=== PATIENT | female | born 1960 | race Caucasian/White ===

== ENCOUNTER 2022-10-24 15:30 | Inpatient (IN) | payer MEDICAID ==
[~2022-10-24] VITALS: Ht 152.4 cm; Wt 90.7 kg
[~2022-10-24 15:30] MED LIST: FISH1CAP34 PO; GABA-533 PO; GLIP10TA10 MT; LEVO-65 MT; LOSA25TA26 MT; METF-414 PO; OMEP20TA23 MT; SULF1TAB48 MT
[2022-10-24 19:17] LABS: BASOPHILS % 0.4 % (0.0-2.0); EOSINOPHILS % 1.3 % (0.0-5.0); HEMATOCRIT. 29.6 % (36.0-48.0); HEMOGLOBIN. 9.6 g/dL (12.0-16.0); LYMPHOCYTES % 10.7 % (20.0-50.0); MEAN CORPUSCULAR HEMOGLOBIN 30.3 pg (28.0-32.0); MEAN CORPUSCULAR VOLUME 93.6 fL (81.0-99.0); MEAN PLATELET VOLUME 7.8 fl (7.4-10.4); MONOCYTES % 8.9 % (2.0-8.0); NEUTROPHILS % 78.7 % (40.0-76.0); PLATELET 124 x1000/uL (130-400); RED BLOOD CELL COUNT 3.16 mill/uL (4.2-5.4); RED CELL DISTRIBUTION WIDTH 15.1 % (11.6-14.6)
[2022-10-24 19:25] LABS: INR 1.3; PROTHROMBIN TIME 13.5 sec (9.6-11.0)
[2022-10-24 20:29] LABS: CHLORIDE 109 mEq/L (98-107)
[2022-10-25] MEDS ORDERED: NA PHOS,M-B/NA PHOS,DI-BA ENEMA 118ML PR PRN (00:15)
[2022-10-25] MEDS ORDERED: ACETAMINOPHEN 325MG TABLET PO PRN ×2 (00:15)
[2022-10-25] MEDS ORDERED: MAGNESIUM/ALUMINUM HYDROXIDE/SIMETHICONE 30ML UDC PO PRN (00:15)
[2022-10-25] MEDS ORDERED: CLONIDINE 0.1MG TABLET PO PRN (00:15)
[2022-10-25] MEDS ORDERED: HYDROCODONE/ACETAMINOPHEN 5/325MG TABLET PO PRN (00:15)
[2022-10-25] MEDS ORDERED: DOCUSATE SODIUM 100MG CAPSULE PO PRN (00:15)
[2022-10-25] MEDS ORDERED: DIPHENHYDRAMINE 50MG/ML VIAL IV PRN (00:15)
[2022-10-25] MEDS ORDERED: GUAIFENESIN 200MG/10ML SUGAR FREE UDC PO PRN (00:15)
[2022-10-25] MEDS ORDERED: IPRATROPIUM/ALBUTEROL 0.5-3(2.5)MG/3ML NEB HHN PRN (00:15)
[2022-10-25] MEDS ORDERED: DEXTROSE 50% WATER 50ML SYRINGE IV PRN (00:30)
[2022-10-25] MEDS ORDERED: SODIUM CHLORIDE 0.9% 1,000 ML IV ONE (01:15)
[2022-10-25 01:59] VITALS: BP 130/90
[2022-10-25 02:00] VITALS: BP 130/90
[2022-10-25] MEDS: PANTOPRAZOLE SODIUM 40 MG/VIAL IV SCH ×2 (05:29→09:00)
[2022-10-25] MEDS: BLOOD SUGAR DIAGNOSTIC STRIP TEST SCH ×4 (05:30→19:55)
[2022-10-25] MEDS ORDERED: PANTOPRAZOLE 40MG DR TABLET PO SCH (06:00)
[2022-10-25] MEDS: ONDANSETRON HCL 4MG/2ML INJ IV PRN (06:29)
[2022-10-25] MEDS: INSULIN LISPRO 100 UNITS/ML SUBCUT SCH ×4 (07:50→19:55)
[2022-10-25 12:26] LABS: HEMATOCRIT 26.7 % (36.0-48.0); HEMOGLOBIN 8.8 g/dL (12.0-16.0); MEAN CORPUSCULAR HEMOGLOBIN 30.8 pg (28.0-32.0); MEAN CORPUSCULAR VOLUME 93.6 fL (81.0-99.0); PLATELET 111 x1000/uL (130-400); RED BLOOD CELL COUNT 2.85 mill/uL (4.2-5.4); RED CELL DISTRIBUTION WIDTH 15.4 % (11.6-14.6)
[2022-10-25 13:02] LABS: PHOSPHORUS 2.6 mg/dL (2.5-4.9); T4 FREE 1.62 ng/dL (0.76-1.46)
[2022-10-25] MEDS ORDERED: NALOXONE HCL 0.4MG/ML VIAL IV PRN (17:15)
[2022-10-25 19:20] LABS: VITAMIN B12 SERUM > 2000.0 pg/mL (211-911)
[2022-10-25 21:09] LABS: HEMATOCRIT 27.1 % (36.0-48.0); HEMOGLOBIN 8.6 g/dL (12.0-16.0)
[2022-10-26 00:40] LABS: HEMATOCRIT 25.8 % (36.0-48.0); HEMOGLOBIN 8.2 g/dL (12.0-16.0)
[2022-10-26] MEDS: HYDROCODONE/ACETAMINOPHEN 10/325MG TABLET PO PRN (05:00)
[2022-10-26] MEDS: BLOOD SUGAR DIAGNOSTIC STRIP TEST SCH ×4 (05:39→21:00)
[2022-10-26 07:28] LABS: BASOPHILS % 0.5 % (0.0-2.0); EOSINOPHILS % 2.1 % (0.0-5.0); HEMATOCRIT. 23.3 % (36.0-48.0); HEMOGLOBIN. 7.6 g/dL (12.0-16.0); LYMPHOCYTES % 13.5 % (20.0-50.0); MEAN CORPUSCULAR HEMOGLOBIN 30.6 pg (28.0-32.0); MEAN CORPUSCULAR VOLUME 93.8 fL (81.0-99.0); MEAN PLATELET VOLUME 7.4 fl (7.4-10.4); MONOCYTES % 9.4 % (2.0-8.0); NEUTROPHILS % 74.5 % (40.0-76.0); PLATELET 102 x1000/uL (130-400); RED BLOOD CELL COUNT 2.49 mill/uL (4.2-5.4); RED CELL DISTRIBUTION WIDTH 15.4 % (11.6-14.6)
[2022-10-26] MEDS: INSULIN LISPRO 100 UNITS/ML SUBCUT SCH ×4 (07:50→21:00)
[2022-10-26 09:12] LABS: CHLORIDE 113 mEq/L (98-107); HDL CHOLESTEROL 11 mg/dL (40-59); LDL CHOLESTEROL 50 mg/dL (5-100); PHOSPHORUS 2.4 mg/dL (2.5-4.9); T4 FREE 1.53 ng/dL (0.76-1.46)
[2022-10-26] MEDS: PANTOPRAZOLE SODIUM 40 MG/VIAL IV SCH (09:21)
[2022-10-26 12:00] VITALS: BP_SYST 97; BP_SYST 98; BP_DIAS 32; BP_DIAS 33
[2022-10-26 12:01] VITALS: BP_SYST 97; BP_SYST 98; BP_DIAS 32; BP_DIAS 33
[2022-10-26] MEDS ORDERED: SODIUM CHLORIDE 0.9% 1000ML BAG (SEPSIS BOLUS) IV ONE (13:00)
[2022-10-26] MEDS ORDERED: SODIUM CHLORIDE 0.9% 250 ML IV SCH (13:15)
[2022-10-26 16:00] VITALS: BP 95/33
[2022-10-26 18:15] VITALS: BP_SYST 106; BP_SYST 95; BP_DIAS 24; BP_DIAS 29
[2022-10-26] MEDS ORDERED: MIDODRINE HCL 5MG TABLET PO SCH (18:15)
[2022-10-26 18:40] VITALS: BP 121/45
[2022-10-26 20:00] VITALS: BP 107/52
[2022-10-26 20:34] LABS: HEMATOCRIT 28.4 % (36.0-48.0); HEMOGLOBIN 8.9 g/dL (12.0-16.0)
[2022-10-26] MEDS: FOLIC ACID 1MG TABLET PO SCH (21:00)
[2022-10-27] VITALS: BP 119/60
[2022-10-27] MEDS: HYDROXYZINE 25MG TABLET PO PRN ×2 (00:44→21:03)
[2022-10-27 03:05] LABS: HEMATOCRIT 23.9 % (36.0-48.0); HEMOGLOBIN 7.8 g/dL (12.0-16.0)
[2022-10-27 04:00] VITALS: BP 99/57
[2022-10-27] MEDS: MIDODRINE HCL 5MG TABLET PO SCH ×3 (05:00→21:00)
[2022-10-27 06:21] LABS: BASOPHILS % 0.5 % (0.0-2.0); EOSINOPHILS % 1.8 % (0.0-5.0); HEMATOCRIT. 23.4 % (36.0-48.0); HEMOGLOBIN. 7.5 g/dL (12.0-16.0); LYMPHOCYTES % 17.5 % (20.0-50.0); MEAN CORPUSCULAR HEMOGLOBIN 30.5 pg (28.0-32.0); MEAN CORPUSCULAR VOLUME 94.9 fL (81.0-99.0); MEAN PLATELET VOLUME 7.9 fl (7.4-10.4); MONOCYTES % 8.9 % (2.0-8.0); NEUTROPHILS % 71.3 % (40.0-76.0); PLATELET 97 x1000/uL (130-400); RED BLOOD CELL COUNT 2.46 mill/uL (4.2-5.4); RED CELL DISTRIBUTION WIDTH 15.6 % (11.6-14.6)
[2022-10-27] MEDS: INSULIN LISPRO 100 UNITS/ML SUBCUT SCH ×4 (07:50→21:00)
[2022-10-27] MEDS: BLOOD SUGAR DIAGNOSTIC STRIP TEST SCH ×4 (07:56→21:32)
[2022-10-27 08:00] VITALS: BP 97/34
[2022-10-27] MEDS: FOLIC ACID 1MG TABLET PO SCH (09:55)
[2022-10-27] MEDS: FUROSEMIDE 40MG TABLET PO SCH ×3 (09:55→17:15)
[2022-10-27] MEDS: PANTOPRAZOLE SODIUM 40 MG/VIAL IV SCH (09:55)
[2022-10-27 12:00] VITALS: BP 93/29
[2022-10-27 16:00] VITALS: BP 98/28
[2022-10-27 16:57] LABS: HEMATOCRIT 24.7 % (36.0-48.0); HEMOGLOBIN 8.2 g/dL (12.0-16.0)
[2022-10-27 17:06] LABS: KAPPA/LAMBDA RATIO 1.09 (0.26-1.65); LAMBDA LT CHAINS FREE SERUM 129.8 mg/L (5.7-26.3)
[2022-10-27] MEDS: SORBITOL 70% SOLN 30ML PO SCH ×2 (17:50→20:00)
[2022-10-27 20:00] VITALS: BP 112/80
[2022-10-27] MEDS: ONDANSETRON HCL 4MG/2ML INJ IV PRN (21:03)
[2022-10-27] MEDS: HYDROCODONE/ACETAMINOPHEN 10/325MG TABLET PO PRN (21:05)
[2022-10-27 21:14] LABS: HEMATOCRIT 32.1 % (36.0-48.0); HEMOGLOBIN 10.1 g/dL (12.0-16.0)
[2022-10-27] MEDS ORDERED: MORPHINE SULFATE 2 MG/ML CPJ (NOT FOR IM USE) IV PRN (22:15)
[2022-10-28] VITALS: BP 121/70
[2022-10-28 02:20] LABS: HEMATOCRIT 25.9 % (36.0-48.0); HEMOGLOBIN 8.2 g/dL (12.0-16.0)
[2022-10-28 04:00] VITALS: BP 97/55
[2022-10-28] MEDS: MIDODRINE HCL 5MG TABLET PO SCH ×3 (05:00→21:00)
[2022-10-28] MEDS: FUROSEMIDE 40MG TABLET PO SCH ×2 (07:15→17:15)
[2022-10-28] MEDS: INSULIN LISPRO 100 UNITS/ML SUBCUT SCH ×4 (07:50→21:00)
[2022-10-28 08:08] LABS: A/G RATIO 0.4 (0.7-1.7); ALBUMIN 1.6 g/dL (2.9-4.4); ALPHA-1-GLOBULIN 0.2 g/dL (0.0-0.4); ALPHA-2-GLOBULIN 0.4 g/dL (0.4-1.0); BETA GLOBULIN 0.7 g/dL (0.7-1.3); GAMMA GLOBULINS 2.3 g/dL (0.4-1.8); GLOBULIN TOTAL 3.7 g/dL (2.2-3.9); M-SPIKE Not Observed g/dL (Not Observed); TOTAL PROTEIN SERUM 5.3 g/dL (6.0-8.5)
[2022-10-28] MEDS: BLOOD SUGAR DIAGNOSTIC STRIP TEST SCH ×4 (08:09→21:00)
[2022-10-28] MEDS: FOLIC ACID 1MG TABLET PO SCH (09:00)
[2022-10-28] MEDS: PANTOPRAZOLE SODIUM 40 MG/VIAL IV SCH (09:38)
[2022-10-28] MEDS ORDERED: PROPOFOL 200MG/20ML VIAL IV ONE (09:49)
[2022-10-28] MEDS ORDERED: EPHEDRINE SULFATE 50MG/ML VIAL ONE (09:49)
[2022-10-28] MEDS ORDERED: LIDOCAINE HCL 1% 10 MG/ML 10ML VIAL ONE (09:49)
[2022-10-28] MEDS ORDERED: PHENYLEPHRINE HCL 10 MG/ML 1ML (IV VIAL) IV ONE (09:49)
[2022-10-28] MEDS ORDERED: ETOMIDATE 2MG/ML 10ML VIAL IV ONE (10:40)
[2022-10-28] MEDS ORDERED: MIDAZOLAM HCL 2 MG/2 ML VIAL ONE (10:43)
[2022-10-28 16:10] LABS: BASOPHILS % 0.4 % (0.0-2.0); EOSINOPHILS % 0.3 % (0.0-5.0); HEMATOCRIT. 25.9 % (36.0-48.0); LYMPHOCYTES % 7.8 % (20.0-50.0); MEAN CORPUSCULAR HEMOGLOBIN 30.2 pg (28.0-32.0); MEAN CORPUSCULAR VOLUME 97.5 fL (81.0-99.0); MEAN PLATELET VOLUME 8.2 fl (7.4-10.4); MONOCYTES % 7.5 % (2.0-8.0); PLATELET 100 x1000/uL (130-400); RED BLOOD CELL COUNT 2.65 mill/uL (4.2-5.4); RED CELL DISTRIBUTION WIDTH 16.5 % (11.6-14.6)
[2022-10-28 16:19] LABS: INR 1.3
[2022-10-28 20:00] VITALS: BP 108/36
[2022-10-29] VITALS: BP 106/40
[2022-10-29] MEDS: MIDODRINE HCL 5MG TABLET PO SCH ×3 (05:00→21:17)
[2022-10-29] MEDS: FUROSEMIDE 40MG TABLET PO SCH ×2 (06:55→18:54)
[2022-10-29] MEDS: INSULIN LISPRO 100 UNITS/ML SUBCUT SCH ×4 (07:50→20:36)
[2022-10-29] MEDS: BLOOD SUGAR DIAGNOSTIC STRIP TEST SCH ×4 (08:05→20:36)
[2022-10-29 09:17] LABS: BASOPHILS % 0.4 % (0.0-2.0); EOSINOPHILS % 2.3 % (0.0-5.0); HEMATOCRIT. 24.2 % (36.0-48.0); HEMOGLOBIN. 7.8 g/dL (12.0-16.0); LYMPHOCYTES % 14.3 % (20.0-50.0); MEAN CORPUSCULAR HEMOGLOBIN 30.5 pg (28.0-32.0); MEAN CORPUSCULAR VOLUME 95.3 fL (81.0-99.0); MEAN PLATELET VOLUME 8.2 fl (7.4-10.4); MONOCYTES % 10.4 % (2.0-8.0); NEUTROPHILS % 72.6 % (40.0-76.0); PLATELET 89 x1000/uL (130-400); RED BLOOD CELL COUNT 2.54 mill/uL (4.2-5.4); RED CELL DISTRIBUTION WIDTH 16.2 % (11.6-14.6)
[2022-10-29] MEDS: PANTOPRAZOLE SODIUM 40 MG/VIAL IV SCH (10:40)
[2022-10-29] MEDS: FOLIC ACID 1MG TABLET PO SCH (10:41)
[2022-10-29 12:20] VITALS: BP 93/30
[2022-10-29 12:58] LABS: HEPATITIS B SURFACE ANTIGEN NEGATIVE
[2022-10-29] MEDS: LEVOTHYROXINE SODIUM 50MCG TABLET PO SCH (13:30)
[2022-10-29 16:14] VITALS: BP 95/42
[2022-10-29] MEDS ORDERED: MIDO5TAB4 PO (18:02)
[2022-10-29] MEDS ORDERED: WHEA152P PO (18:02)
[2022-10-29] MEDS ORDERED: LEVO50TA8 PO (18:02)
[2022-10-29] MEDS: MEGESTROL ACETATE 400 MG/10 ML UDC PO SCH (18:54)
[2022-10-29 19:39] LABS: CLARITY URINE CLEAR (CLEAR); COLOR URINE YELLOW (YELLOW); KETONES URINE NEGATIVE (NEGATIVE); LEUKOCYTE ESTERASE URINE TRACE (NEGATIVE); NITRITE URINE NEGATIVE (NEGATIVE); OCCULT BLOOD URINE 1+ (NEGATIVE); PROTEIN URINE NEGATIVE (NEGATIVE); SPECIFIC GRAVITY URINE 1.008 (1.005-1.030); UROBILINOGEN URINE 0.2 E.U./dL (0.2-1.0)
[2022-10-29 20:00] VITALS: BP 95/36
[2022-10-29] MEDS ORDERED: MEGE400O4 PO (22:01)
[2022-10-29] MEDS ORDERED: FURO40TA5 PO (22:01)
[2022-10-30] VITALS: BP 96/34
[2022-10-30 03:51] VITALS: BP 96/34
[2022-10-30 04:00] VITALS: BP 97/35
[2022-10-30] MEDS: FUROSEMIDE 40MG TABLET PO SCH (06:19)
[2022-10-30] MEDS: LEVOTHYROXINE SODIUM 50MCG TABLET PO SCH (06:19)
[2022-10-30] MEDS: MIDODRINE HCL 5MG TABLET PO SCH (06:19)
[2022-10-30] MEDS: BLOOD SUGAR DIAGNOSTIC STRIP TEST SCH (07:42)
[2022-10-30] MEDS: INSULIN LISPRO 100 UNITS/ML SUBCUT SCH (07:50)
[2022-10-30 08:23] LABS: BASOPHILS % 0.6 % (0.0-2.0); EOSINOPHILS % 2.8 % (0.0-5.0); HEMATOCRIT. 25.5 % (36.0-48.0); HEMOGLOBIN. 8.4 g/dL (12.0-16.0); LYMPHOCYTES % 17.7 % (20.0-50.0); MEAN CORPUSCULAR VOLUME 93.8 fL (81.0-99.0); MEAN PLATELET VOLUME 8.3 fl (7.4-10.4); MONOCYTES % 10.6 % (2.0-8.0); NEUTROPHILS % 68.3 % (40.0-76.0); PLATELET 113 x1000/uL (130-400); RED BLOOD CELL COUNT 2.72 mill/uL (4.2-5.4); RED CELL DISTRIBUTION WIDTH 16.4 % (11.6-14.6)
[2022-10-30] MEDS ORDERED: PANTOPRAZOLE 40MG DR TABLET PO SCH (09:30)
[2022-10-30 10:10] LABS: IMMUNOGLOBULIN A 832 mg/dL (87-352); IMMUNOGLOBULIN G 2114 mg/dL (586-1602); IMMUNOGLOBULIN M 154 mg/dL (26-217)
[2022-10-30] MEDS: FOLIC ACID 1MG TABLET PO SCH (10:12)
[2022-10-30] MEDS: MEGESTROL ACETATE 400 MG/10 ML UDC PO SCH (10:12)
[2022-11-02 06:12] LABS: ANA IFA Negative (.)
== END 2022-10-30 10:43 | disposition home or self-care (01) | DRG 252 ==
LOC: ER 15:30 → EDBEDREQ 17:47 → EDBEDREQTM 19:32 → EDBEDREQ 19:32 → 6EST 22:51 → EDBEDREQ 22:55 → EDBEDREQTM 22:55 → EDBEDREQ 22:56 → SUPCPDRO 23:51 → ENRESERV 10-25 00:09
PROVIDERS: ADMIT Internal Medicine; ATTEND Internal Medicine
PROC: 0DJD8ZZ Inspection of Lower Intestinal Tract, Via Natural or Artificial Opening Endoscopic (ICD-10-PCS; principal; 2022-10-28)
DX: K94.01 Colostomy hemorrhage (principal); N17.0 Acute kidney failure with tubular necrosis; E43 Unspecified severe protein-calorie malnutrition; D69.3 Immune thrombocytopenic purpura; D62 Acute posthemorrhagic anemia; D63.1 Anemia in chronic kidney disease; J90 Pleural effusion, not elsewhere classified; K62.4 Stenosis of anus and rectum; E11.22 Type 2 diabetes mellitus with diabetic chronic kidney disease; K76.0 Fatty (change of) liver, not elsewhere classified; Q61.9 Cystic kidney disease, unspecified; K80.20 Calculus of gallbladder without cholecystitis without obstruction; Z20.822 Contact with and (suspected) exposure to COVID-19; E66.01 Morbid (severe) obesity due to excess calories; E03.8 Other specified hypothyroidism; R16.1 Splenomegaly, not elsewhere classified; I95.9 Hypotension, unspecified; I12.9 Hypertensive chronic kidney disease with stage 1 through stage 4 chronic kidney disease, or unspecified chronic kidney disease; N20.2 Calculus of kidney with calculus of ureter; N18.31 Chronic kidney disease, stage 3a; K43.5 Parastomal hernia without obstruction or gangrene; Z68.39 Body mass index [BMI] 39.0-39.9, adult; Z79.899 Other long term (current) drug therapy; Z86.718 Personal history of other venous thrombosis and embolism; Z90.49 Acquired absence of other specified parts of digestive tract; Z95.828 Presence of other vascular implants and grafts; Z79.84 Long term (current) use of oral hypoglycemic drugs
CPT/HCPCS: 36415; 71045; 74176; 76700; 78278; 80048; 80053; 80061; 81003; 82607; 82728; 82746; 82784; 82962; 83036; 83540; 83550; 83735; 83883; 83930; 84100; 84155; 84165; 84439; 84443; 85014; 85018; 85025; 85027; 85044; 86256; 86334; 86705; 86709; 86803; 86850; 86900; 86920; 87340; 87426; 93306; 93970; 97162; 97166; 99285; A9512; C9113; J2250; J2270; J2370; J2405; J2704; J3490

== ENCOUNTER 2023-03-13 18:55 | Inpatient (IN) | payer MEDICAID ==
[~2023-03-13] VITALS: Ht 152.4 cm; Wt 124.3 kg
[~2023-03-13 18:55] MED LIST changes: +FURO40TA5 PO; +LEVO50TA8 PO; -LOSA25TA26 MT; +MEGE400O4 PO; +MIDO5TAB4 PO; -SULF1TAB48 MT; +WHEA152P PO
[2023-03-13] MEDS ORDERED: SODIUM CHLORIDE 0.9% 1,000 ML IV ONE ×2 (19:15→23:45)
[2023-03-13] MEDS ORDERED: PANTOPRAZOLE SODIUM 40 MG/VIAL IV ONE (19:45)
[2023-03-13] MEDS ORDERED: ONDANSETRON HCL 4MG/2ML INJ IV ONE (19:45)
[2023-03-13] MEDS ORDERED: MORPHINE SULFATE 4 MG/ML CPJ (NOT FOR IM USE) IV ONE (19:45)
[2023-03-13 21:58] LABS: HEMATOCRIT. 28.6 % (36.0-48.0); HEMOGLOBIN. 9.3 g/dL (12.0-16.0); MEAN CORPUSCULAR HEMOGLOBIN 31.7 pg (28.0-32.0); MEAN CORPUSCULAR VOLUME 97.5 fL (81.0-99.0); MEAN PLATELET VOLUME 8.3 fl (7.4-10.4); PLATELET 107 x1000/uL (130-400); RED BLOOD CELL COUNT 2.93 mill/uL (4.2-5.4); RED CELL DISTRIBUTION WIDTH 18.6 % (11.6-14.6)
[2023-03-13 22:09] LABS: CHLORIDE 121 mEq/L (98-107)
[2023-03-13 22:20] LABS: PLATELET ESTIMATE DECREASED
[2023-03-13] MEDS ORDERED: KCL 20MEQ/100ML PREMIX 100 ML IV ONE (22:30)
[2023-03-14 00:10] LABS: HEMATOCRIT 27.1 % (36.0-48.0); HEMOGLOBIN 8.8 g/dL (12.0-16.0); MEAN CORPUSCULAR HEMOGLOBIN 32.1 pg (28.0-32.0); MEAN CORPUSCULAR VOLUME 98.6 fL (81.0-99.0); PLATELET 100 x1000/uL (130-400); RED BLOOD CELL COUNT 2.75 mill/uL (4.2-5.4)
[2023-03-14] MEDS ORDERED: FENTANYL CITRATE/PF 50MCG/ML 2ML VIAL IV ONE (01:15)
[2023-03-14 02:35] LABS: INR 1.5; PROTHROMBIN TIME 15.6 sec (9.6-11.0)
[2023-03-14 05:59] VITALS: BP 131/61
[2023-03-14 06:00] VITALS: BP 133/50
[2023-03-14] MEDS ORDERED: ACETAMINOPHEN 325MG TABLET PO PRN ×2 (06:00→09:15)
[2023-03-14] MEDS ORDERED: IOHEXOL-350 100 ML BOTTLE ONE (06:08)
[2023-03-14] MEDS: SODIUM CHLORIDE 0.45% 1,000 ML IV SCH ×2 (06:26→17:40)
[2023-03-14] MEDS: MORPHINE SULFATE 2 MG/ML CPJ (NOT FOR IM USE) IV PRN ×2 (06:45→14:17)
[2023-03-14 06:48] LABS: BASOPHILS % 0.1 % (0.0-2.0); EOSINOPHILS % 0.1 % (0.0-5.0); HEMATOCRIT. 25.6 % (36.0-48.0); HEMOGLOBIN. 8.4 g/dL (12.0-16.0); LYMPHOCYTES % 7.9 % (20.0-50.0); MEAN CORPUSCULAR HEMOGLOBIN 31.9 pg (28.0-32.0); MEAN CORPUSCULAR VOLUME 96.9 fL (81.0-99.0); MONOCYTES % 7.9 % (2.0-8.0); PLATELET 100 x1000/uL (130-400); RED BLOOD CELL COUNT 2.64 mill/uL (4.2-5.4); RED CELL DISTRIBUTION WIDTH 18.9 % (11.6-14.6)
[2023-03-14 08:00] VITALS: BP 104/65
[2023-03-14] MEDS ORDERED: IPRATROPIUM/ALBUTEROL 0.5-3(2.5)MG/3ML NEB HHN PRN (09:15)
[2023-03-14] MEDS ORDERED: DOCUSATE SODIUM 100MG CAPSULE PO PRN (09:15)
[2023-03-14] MEDS ORDERED: CLONIDINE 0.1MG TABLET PO PRN (09:15)
[2023-03-14] MEDS ORDERED: LORAZEPAM 0.5MG TABLET PO PRN (09:15)
[2023-03-14] MEDS ORDERED: NALOXONE HCL 0.4MG/ML VIAL IV PRN (10:00)
[2023-03-14 12:00] VITALS: BP 133/57
[2023-03-14] MEDS: PANTOPRAZOLE SODIUM 40 MG/VIAL IV SCH ×2 (12:54→21:24)
[2023-03-14] MEDS ORDERED: DEXTROSE 50% WATER 50ML SYRINGE IV PRN (13:00)
[2023-03-14 13:44] LABS: BG BASE EXCESS -1.9 mmol/L (-2.0-2.0); BG CARBOXYHEMOGLOBIN 0.5 % (0.5-1.5); BG HCO3 ACT 21.8 mmol/L (22.0-26.0); BG METHEMOGLOBIN 0.2 % (0.0-1.5); BG OXYHEMOGLOBIN 94.3 % (94.0-97.0); BG PCO2 32.7 mmHg (35.0-45.0); BG PH 7.441 (7.350-7.450); BG PO2 78.2 mmHg (75.0-100.0); BG SAMPLE SITE RIGHT RADIAL; BG TOTAL HEMOGLOBIN 8.9 g/dL (12.0-18.0); BG VENT MODE ROOM AIR
[2023-03-14 15:34] LABS: INR 1.5; PROTHROMBIN TIME 15.9 sec (9.6-11.0)
[2023-03-14 15:42] LABS: CREATINE KINASE 284 IU/L (26-192); TOTAL IRON BINDING CAPACITY 99 ug/dL (250-450)
[2023-03-14 16:00] VITALS: BP 106/51
[2023-03-14 16:13] LABS: VITAMIN B12 SERUM 1934 pg/mL (211-911)
[2023-03-14 16:37] LABS: FERRITIN 1340 ng/mL (10-291)
[2023-03-14] MEDS: INSULIN LISPRO 100 UNITS/ML SUBCUT SCH ×2 (17:20→21:00)
[2023-03-14] MEDS: ACETAMINOPHEN 325MG TABLET PO PRN (17:39)
[2023-03-14] MEDS: BLOOD SUGAR DIAGNOSTIC STRIP TEST SCH ×2 (17:39→21:21)
[2023-03-14 18:04] LABS: CLARITY URINE CLOUDY (CLEAR); COLOR URINE DARK YELLOW (YELLOW); KETONES URINE TRACE (NEGATIVE); LEUKOCYTE ESTERASE URINE 2+ (NEGATIVE); NITRITE URINE NEGATIVE (NEGATIVE); OCCULT BLOOD URINE 3+ (NEGATIVE); PH URINE 5.5 (4.5-8.0); PROTEIN URINE 1+ (NEGATIVE); SPECIFIC GRAVITY URINE 1.038 (1.005-1.030)
[2023-03-14 18:06] LABS: HEMATOCRIT 26.1 % (36.0-48.0); HEMOGLOBIN 8.3 g/dL (12.0-16.0)
[2023-03-14] MEDS: PHYTONADIONE 10MG/ML AMP SUBCUT SCH (19:22)
[2023-03-14 20:00] VITALS: BP 135/92
[2023-03-15] VITALS: BP 115/40
[2023-03-15 00:50] LABS: HEMATOCRIT 25.8 % (36.0-48.0); HEMOGLOBIN 8.5 g/dL (12.0-16.0)
[2023-03-15] MEDS: SODIUM CHLORIDE 0.45% 1,000 ML IV SCH ×3 (02:19→21:21)
[2023-03-15 04:00] VITALS: BP 121/47
[2023-03-15 05:35] LABS: BASOPHILS % 0.2 % (0.0-2.0); EOSINOPHILS % 1.2 % (0.0-5.0); HEMATOCRIT. 23.4 % (36.0-48.0); HEMOGLOBIN. 7.5 g/dL (12.0-16.0); MEAN CORPUSCULAR HEMOGLOBIN 32.2 pg (28.0-32.0); MEAN CORPUSCULAR VOLUME 100.6 fL (81.0-99.0); MEAN PLATELET VOLUME 7.8 fl (7.4-10.4); MONOCYTES % 12.6 % (2.0-8.0); PLATELET 96 x1000/uL (130-400); RED BLOOD CELL COUNT 2.32 mill/uL (4.2-5.4); RED CELL DISTRIBUTION WIDTH 19.3 % (11.6-14.6)
[2023-03-15 05:39] LABS: CHLORIDE 110 mEq/L (98-107)
[2023-03-15] MEDS: BLOOD SUGAR DIAGNOSTIC STRIP TEST SCH ×4 (07:00→21:00)
[2023-03-15] MEDS: INSULIN LISPRO 100 UNITS/ML SUBCUT SCH ×4 (07:20→21:00)
[2023-03-15 08:00] VITALS: BP 126/43
[2023-03-15] MEDS: PHYTONADIONE 10MG/ML AMP SUBCUT SCH (09:43)
[2023-03-15] MEDS: PANTOPRAZOLE SODIUM 40 MG/VIAL IV SCH ×2 (09:43→21:20)
[2023-03-15] MEDS: FOLIC ACID 1MG TABLET PO SCH (09:43)
[2023-03-15] MEDS ORDERED: FOLIC ACID 1 MG in SODIUM CHLORIDE 0.9% 500 ML IV ONE (10:00)
[2023-03-15 12:00] VITALS: BP 122/42
[2023-03-15] MEDS: CEFTRIAXONE 1,000 MG in DEXTROSE 5% WATER 50 ML IV SCH (12:04)
[2023-03-15] MEDS: MORPHINE SULFATE 2 MG/ML CPJ (NOT FOR IM USE) IV PRN ×2 (12:17→21:21)
[2023-03-15 13:08] LABS: HEMATOCRIT 22.7 % (36.0-48.0); HEMOGLOBIN 7.5 g/dL (12.0-16.0)
[2023-03-15 13:30] LABS: CREATINE KINASE 263 IU/L (26-192)
[2023-03-15 16:00] VITALS: BP 123/43
[2023-03-15 20:00] VITALS: BP 116/44
[2023-03-15 21:12] LABS: HEMATOCRIT 25.3 % (36.0-48.0); HEMOGLOBIN 7.8 g/dL (12.0-16.0)
[2023-03-16] VITALS (8 sets, daily range): BP systolic 106–132; BP diastolic 46–82
[2023-03-16 01:25] LABS: HEMATOCRIT 23.8 % (36.0-48.0); HEMOGLOBIN 7.9 g/dL (12.0-16.0)
[2023-03-16] MEDS: MORPHINE SULFATE 2 MG/ML CPJ (NOT FOR IM USE) IV PRN (05:04)
[2023-03-16] MEDS: BLOOD SUGAR DIAGNOSTIC STRIP TEST SCH ×4 (06:17→21:19)
[2023-03-16] MEDS: INSULIN LISPRO 100 UNITS/ML SUBCUT SCH ×4 (06:17→21:30)
[2023-03-16 06:55] LABS: BASOPHILS % 0.4 % (0.0-2.0); EOSINOPHILS % 1.2 % (0.0-5.0); HEMATOCRIT. 22.4 % (36.0-48.0); HEMOGLOBIN. 7.5 g/dL (12.0-16.0); LYMPHOCYTES % 15.6 % (20.0-50.0); MEAN CORPUSCULAR HEMOGLOBIN 32.4 pg (28.0-32.0); MEAN CORPUSCULAR VOLUME 96.2 fL (81.0-99.0); MEAN PLATELET VOLUME 7.8 fl (7.4-10.4); MONOCYTES % 9.8 % (2.0-8.0); PLATELET 103 x1000/uL (130-400); RED BLOOD CELL COUNT 2.33 mill/uL (4.2-5.4); RED CELL DISTRIBUTION WIDTH 18.1 % (11.6-14.6)
[2023-03-16] MEDS ORDERED: LIDOCAINE HCL/EPINEPHRINE 1%-EPI 1:100,000 30 ML VIAL INFIL ONE (06:55)
[2023-03-16] MEDS ORDERED: POLYMYXIN B SULFATE 500000 UNITS/VIAL ONE (06:55)
[2023-03-16] MEDS ORDERED: BUPIVACAINE HCL/PF 0.5% (5MG/ML) 10ML ONE (06:56)
[2023-03-16] MEDS ORDERED: VANCOMYCIN HCL 1 GM/VIAL ONE ×2 (06:56)
[2023-03-16] MEDS ORDERED: CEFAZOLIN SODIUM 1000MG/VIAL ONE (07:25)
[2023-03-16] MEDS ORDERED: PROPOFOL 200MG/20ML VIAL IV ONE (07:27)
[2023-03-16] MEDS ORDERED: MIDAZOLAM HCL 2 MG/2 ML VIAL ONE (07:31)
[2023-03-16] MEDS ORDERED: FENTANYL CITRATE/PF 50MCG/ML 2ML VIAL ONE (07:53)
[2023-03-16] MEDS: SODIUM CHLORIDE 0.45% 1,000 ML IV SCH (08:00)
[2023-03-16 08:11] LABS: CHLORIDE 109 mEq/L (98-107)
[2023-03-16] MEDS ORDERED: HYDROMORPHONE HCL/PF 2MG/ML CPJ IV PRN (08:15)
[2023-03-16] MEDS ORDERED: FENTANYL CITRATE/PF 50MCG/ML 2ML VIAL IV PRN (08:15)
[2023-03-16] MEDS ORDERED: ALBUMIN HUMAN 12.5GM/50ML (25%) IV ONE (08:17)
[2023-03-16 08:24] LABS: PHOSPHORUS 2.9 mg/dL (2.5-4.9)
[2023-03-16] MEDS: PANTOPRAZOLE SODIUM 40 MG/VIAL IV SCH ×2 (08:25→21:16)
[2023-03-16] MEDS: FOLIC ACID 1MG TABLET PO SCH (08:25)
[2023-03-16] MEDS: PHYTONADIONE 10MG/ML AMP SUBCUT SCH (09:00)
[2023-03-16 10:12] LABS: BASOPHILS % 0.1 % (0.0-2.0); EOSINOPHILS % 0.6 % (0.0-5.0); HEMATOCRIT. 30.2 % (36.0-48.0); HEMOGLOBIN. 10.1 g/dL (12.0-16.0); MEAN CORPUSCULAR HEMOGLOBIN 31.9 pg (28.0-32.0); MEAN CORPUSCULAR VOLUME 95.5 fL (81.0-99.0); MONOCYTES % 3.6 % (2.0-8.0); NEUTROPHILS % 86.7 % (40.0-76.0); PLATELET 75 x1000/uL (130-400); RED BLOOD CELL COUNT 3.16 mill/uL (4.2-5.4); RED CELL DISTRIBUTION WIDTH 18.6 % (11.6-14.6)
[2023-03-16] MEDS: CEFTRIAXONE 1,000 MG in DEXTROSE 5% WATER 50 ML IV SCH (13:10)
[2023-03-16 13:12] LABS: HEMATOCRIT 19.9 % (36.0-48.0); HEMOGLOBIN 6.7 g/dL (12.0-16.0)
[2023-03-16] MEDS: HYDROCODONE/ACETAMINOPHEN 5/325MG TABLET PO PRN (18:21)
[2023-03-16] MEDS: CEFAZOLIN 1000MG PREMIX 100 ML IV SCH (21:17)
[2023-03-16 21:18] LABS: HEMATOCRIT 22.9 % (36.0-48.0); HEMOGLOBIN 7.7 g/dL (12.0-16.0)
[2023-03-17] VITALS: BP 126/45
[2023-03-17 02:11] LABS: HEMATOCRIT 23.2 % (36.0-48.0); HEMOGLOBIN 7.8 g/dL (12.0-16.0)
[2023-03-17 04:00] VITALS: BP 97/48
[2023-03-17] MEDS: BLOOD SUGAR DIAGNOSTIC STRIP TEST SCH ×4 (06:15→21:02)
[2023-03-17 06:35] LABS: HEMOGLOBIN. 7.5 g/dL (12.0-16.0); LYMPHOCYTES % 9.5 % (20.0-50.0); MEAN CORPUSCULAR HEMOGLOBIN 31.5 pg (28.0-32.0); MEAN CORPUSCULAR VOLUME 100.6 fL (81.0-99.0); MEAN PLATELET VOLUME 7.7 fl (7.4-10.4); MONOCYTES % 7.7 % (2.0-8.0); NEUTROPHILS % 82.8 % (40.0-76.0); PLATELET 90 x1000/uL (130-400); RED BLOOD CELL COUNT 2.39 mill/uL (4.2-5.4); RED CELL DISTRIBUTION WIDTH 20.6 % (11.6-14.6)
[2023-03-17] MEDS: INSULIN LISPRO 100 UNITS/ML SUBCUT SCH ×5 (07:20→21:00)
[2023-03-17 08:01] VITALS: BP 108/39
[2023-03-17 08:10] LABS: ANTI-NUCLEAR ANTIBODIES DIRECT Positive (Negative)
[2023-03-17] MEDS: FOLIC ACID 1MG TABLET PO SCH (08:31)
[2023-03-17] MEDS: FUROSEMIDE 40MG TABLET PO SCH (08:31)
[2023-03-17] MEDS: PANTOPRAZOLE SODIUM 40 MG/VIAL IV SCH ×2 (08:32→21:04)
[2023-03-17] MEDS: CEFAZOLIN 1000MG PREMIX 100 ML IV SCH ×2 (08:32→21:03)
[2023-03-17] MEDS: HYDROCODONE/ACETAMINOPHEN 5/325MG TABLET PO PRN ×2 (08:36→23:12)
[2023-03-17 12:12] VITALS: BP 100/47
[2023-03-17] MEDS: CEFTRIAXONE 1,000 MG in DEXTROSE 5% WATER 50 ML IV SCH (12:37)
[2023-03-17 16:00] VITALS: BP 121/56
[2023-03-17 17:00] LABS: HEMATOCRIT 24.3 % (36.0-48.0); HEMOGLOBIN 8.1 g/dL (12.0-16.0)
[2023-03-17 20:00] VITALS: BP 120/54
[2023-03-18] VITALS: BP 99/48
[2023-03-18 04:00] VITALS: BP 94/41
[2023-03-18] MEDS: BLOOD SUGAR DIAGNOSTIC STRIP TEST SCH ×4 (06:04→20:53)
[2023-03-18 06:27] LABS: BASOPHILS % 0.1 % (0.0-2.0); EOSINOPHILS % 1.3 % (0.0-5.0); HEMATOCRIT. 21.6 % (36.0-48.0); HEMOGLOBIN. 7.3 g/dL (12.0-16.0); LYMPHOCYTES % 16.1 % (20.0-50.0); MEAN CORPUSCULAR HEMOGLOBIN 31.9 pg (28.0-32.0); MEAN CORPUSCULAR VOLUME 94.1 fL (81.0-99.0); MEAN PLATELET VOLUME 7.4 fl (7.4-10.4); MONOCYTES % 10.1 % (2.0-8.0); NEUTROPHILS % 72.4 % (40.0-76.0); PLATELET 85 x1000/uL (130-400); RED BLOOD CELL COUNT 2.29 mill/uL (4.2-5.4); RED CELL DISTRIBUTION WIDTH 19.4 % (11.6-14.6)
[2023-03-18] MEDS: INSULIN LISPRO 100 UNITS/ML SUBCUT SCH ×4 (07:20→20:54)
[2023-03-18 08:00] VITALS: BP 94/49
[2023-03-18] MEDS ORDERED: POTASSIUM CHLORIDE 20MEQ TABLET SR PO NR (08:45)
[2023-03-18] MEDS: FOLIC ACID 1MG TABLET PO SCH (09:42)
[2023-03-18] MEDS: FUROSEMIDE 40MG TABLET PO SCH (09:42)
[2023-03-18] MEDS: PANTOPRAZOLE SODIUM 40 MG/VIAL IV SCH ×2 (09:43→20:42)
[2023-03-18] MEDS: HYDROCODONE/ACETAMINOPHEN 5/325MG TABLET PO PRN ×2 (09:43→16:58)
[2023-03-18] MEDS ORDERED: DOCUSATE SODIUM 100MG CAPSULE PO SCH (09:45)
[2023-03-18] MEDS: CEFAZOLIN 1000MG PREMIX 100 ML IV SCH ×2 (10:44→20:42)
[2023-03-18] MEDS: LACTULOSE 20G/30ML UDC PO SCH (10:44)
[2023-03-18] MEDS: DOCUSATE SODIUM 250MG CAPSULE PO SCH (11:40)
[2023-03-18] MEDS: CEFTRIAXONE 1,000 MG in DEXTROSE 5% WATER 50 ML IV SCH (11:40)
[2023-03-18] MEDS: ACETAMINOPHEN 325MG TABLET PO PRN (11:58)
[2023-03-18 12:00] VITALS: BP 122/58
[2023-03-18 16:00] VITALS: BP 120/58
[2023-03-18 20:00] VITALS: BP 120/52
[2023-03-18 21:42] LABS: HEMATOCRIT 26.3 % (36.0-48.0); HEMOGLOBIN 8.1 g/dL (12.0-16.0)
[2023-03-19] VITALS: BP 108/54
[2023-03-19] MEDS: HYDROCODONE/ACETAMINOPHEN 5/325MG TABLET PO PRN ×4 (03:29→21:00)
[2023-03-19 04:00] VITALS: BP 107/50
[2023-03-19] MEDS: BLOOD SUGAR DIAGNOSTIC STRIP TEST SCH ×4 (06:38→21:00)
[2023-03-19] MEDS: INSULIN LISPRO 100 UNITS/ML SUBCUT SCH ×4 (07:20→21:00)
[2023-03-19 08:00] VITALS: BP 117/48
[2023-03-19 08:03] LABS: BASOPHILS % 0.4 % (0.0-2.0); EOSINOPHILS % 2.5 % (0.0-5.0); HEMATOCRIT. 23.7 % (36.0-48.0); LYMPHOCYTES % 16.6 % (20.0-50.0); MEAN CORPUSCULAR HEMOGLOBIN 32.4 pg (28.0-32.0); MEAN CORPUSCULAR VOLUME 96.5 fL (81.0-99.0); MONOCYTES % 9.7 % (2.0-8.0); NEUTROPHILS % 70.8 % (40.0-76.0); PLATELET 78 x1000/uL (130-400); RED BLOOD CELL COUNT 2.46 mill/uL (4.2-5.4); RED CELL DISTRIBUTION WIDTH 19.5 % (11.6-14.6)
[2023-03-19 08:45] LABS: PHOSPHORUS 2.6 mg/dL (2.5-4.9)
[2023-03-19] MEDS: LACTULOSE 20G/30ML UDC PO SCH (09:00)
[2023-03-19] MEDS: DOCUSATE SODIUM 250MG CAPSULE PO SCH (09:01)
[2023-03-19] MEDS: FOLIC ACID 1MG TABLET PO SCH (09:01)
[2023-03-19] MEDS: FUROSEMIDE 40MG TABLET PO SCH (09:02)
[2023-03-19] MEDS: PANTOPRAZOLE SODIUM 40 MG/VIAL IV SCH ×2 (09:06→21:00)
[2023-03-19] MEDS ORDERED: POTASSIUM CHLORIDE 20MEQ TABLET SR PO NR (09:45)
[2023-03-19] MEDS: CEFTRIAXONE 1,000 MG in DEXTROSE 5% WATER 50 ML IV SCH (11:32)
[2023-03-19 12:00] VITALS: BP 122/55
[2023-03-19 16:01] VITALS: BP 105/54
[2023-03-19 20:35] VITALS: BP 116/48
[2023-03-20] VITALS: BP 115/44
[2023-03-20 04:00] VITALS: BP 109/49
[2023-03-20] MEDS: BLOOD SUGAR DIAGNOSTIC STRIP TEST SCH ×4 (06:28→20:36)
[2023-03-20] MEDS: INSULIN LISPRO 100 UNITS/ML SUBCUT SCH ×4 (06:28→20:36)
[2023-03-20] MEDS: HYDROCODONE/ACETAMINOPHEN 5/325MG TABLET PO PRN ×3 (06:48→20:39)
[2023-03-20 08:00] VITALS: BP 124/47
[2023-03-20] MEDS: LACTULOSE 20G/30ML UDC PO SCH (09:00)
[2023-03-20] MEDS: FUROSEMIDE 40MG TABLET PO SCH (09:18)
[2023-03-20] MEDS: PANTOPRAZOLE SODIUM 40 MG/VIAL IV SCH ×2 (09:18→20:39)
[2023-03-20] MEDS: DOCUSATE SODIUM 250MG CAPSULE PO SCH (09:18)
[2023-03-20] MEDS: FOLIC ACID 1MG TABLET PO SCH (09:18)
[2023-03-20] MEDS ORDERED: NALOXONE HCL 0.4MG/ML VIAL IV PRN (09:45)
[2023-03-20 11:49] LABS: BASOPHILS % 0.5 % (0.0-2.0); EOSINOPHILS % 2.7 % (0.0-5.0); HEMATOCRIT. 22.8 % (36.0-48.0); HEMOGLOBIN. 7.8 g/dL (12.0-16.0); LYMPHOCYTES % 17.8 % (20.0-50.0); MEAN CORPUSCULAR HEMOGLOBIN 33.3 pg (28.0-32.0); MEAN CORPUSCULAR VOLUME 96.9 fL (81.0-99.0); MEAN PLATELET VOLUME 8.1 fl (7.4-10.4); MONOCYTES % 9.3 % (2.0-8.0); NEUTROPHILS % 69.7 % (40.0-76.0); PLATELET 118 x1000/uL (130-400); RED BLOOD CELL COUNT 2.35 mill/uL (4.2-5.4); RED CELL DISTRIBUTION WIDTH 19.8 % (11.6-14.6)
[2023-03-20 12:00] VITALS: BP 109/40
[2023-03-20] MEDS: CEFTRIAXONE 1,000 MG in DEXTROSE 5% WATER 50 ML IV SCH (12:37)
[2023-03-20] MEDS ORDERED: POTASSIUM CHLORIDE 20MEQ TABLET SR PO NR (12:45)
[2023-03-20 16:00] VITALS: BP 114/46
[2023-03-20 20:00] VITALS: BP 110/39
[2023-03-21] VITALS (7 sets, daily range): BP systolic 109–133; BP diastolic 43–76
[2023-03-21] MEDS: HYDROCODONE/ACETAMINOPHEN 5/325MG TABLET PO PRN ×3 (05:39→21:51)
[2023-03-21 06:28] LABS: BASOPHILS % 0.6 % (0.0-2.0); EOSINOPHILS % 2.4 % (0.0-5.0); HEMATOCRIT. 24.3 % (36.0-48.0); HEMOGLOBIN. 8.2 g/dL (12.0-16.0); LYMPHOCYTES % 15.6 % (20.0-50.0); MEAN CORPUSCULAR VOLUME 97.9 fL (81.0-99.0); MEAN PLATELET VOLUME 7.7 fl (7.4-10.4); MONOCYTES % 9.7 % (2.0-8.0); NEUTROPHILS % 71.7 % (40.0-76.0); PLATELET 75 x1000/uL (130-400); RED BLOOD CELL COUNT 2.48 mill/uL (4.2-5.4); RED CELL DISTRIBUTION WIDTH 20.5 % (11.6-14.6)
[2023-03-21] MEDS: BLOOD SUGAR DIAGNOSTIC STRIP TEST SCH ×4 (06:50→20:47)
[2023-03-21] MEDS: INSULIN LISPRO 100 UNITS/ML SUBCUT SCH ×4 (06:55→20:56)
[2023-03-21] MEDS: DOCUSATE SODIUM 250MG CAPSULE PO SCH ×2 (08:40→17:45)
[2023-03-21] MEDS: PANTOPRAZOLE SODIUM 40 MG/VIAL IV SCH ×2 (08:40→20:47)
[2023-03-21] MEDS: FUROSEMIDE 40MG TABLET PO SCH (08:40)
[2023-03-21] MEDS: LACTULOSE 20G/30ML UDC PO SCH (08:40)
[2023-03-21] MEDS: FOLIC ACID 1MG TABLET PO SCH (09:44)
[2023-03-22] VITALS (7 sets, daily range): BP systolic 108–122; BP diastolic 35–57
[2023-03-22] MEDS: HYDROCODONE/ACETAMINOPHEN 5/325MG TABLET PO PRN ×4 (02:44→22:51)
[2023-03-22] MEDS: INSULIN LISPRO 100 UNITS/ML SUBCUT SCH ×4 (07:45→21:00)
[2023-03-22] MEDS: BLOOD SUGAR DIAGNOSTIC STRIP TEST SCH ×4 (07:45→21:00)
[2023-03-22] MEDS: DOCUSATE SODIUM 250MG CAPSULE PO SCH ×2 (08:37→17:07)
[2023-03-22] MEDS: LACTULOSE 20G/30ML UDC PO SCH (08:37)
[2023-03-22] MEDS: FOLIC ACID 1MG TABLET PO SCH (08:37)
[2023-03-22] MEDS: FUROSEMIDE 40MG TABLET PO SCH (08:40)
[2023-03-22] MEDS: PANTOPRAZOLE SODIUM 40 MG/VIAL IV SCH ×2 (10:24→21:12)
[2023-03-23] VITALS: BP 111/32
[2023-03-23 04:00] VITALS: BP 114/39
[2023-03-23] MEDS: BLOOD SUGAR DIAGNOSTIC STRIP TEST SCH ×4 (05:11→21:00)
[2023-03-23] MEDS: INSULIN LISPRO 100 UNITS/ML SUBCUT SCH ×4 (05:11→21:00)
[2023-03-23] MEDS: HYDROCODONE/ACETAMINOPHEN 5/325MG TABLET PO PRN ×3 (05:16→18:49)
[2023-03-23 08:00] VITALS: BP 103/31
[2023-03-23] MEDS: LACTULOSE 20G/30ML UDC PO SCH (09:00)
[2023-03-23] MEDS: FOLIC ACID 1MG TABLET PO SCH (09:50)
[2023-03-23] MEDS: FUROSEMIDE 40MG TABLET PO SCH (09:50)
[2023-03-23] MEDS: DOCUSATE SODIUM 250MG CAPSULE PO SCH ×2 (09:50→17:00)
[2023-03-23] MEDS: PANTOPRAZOLE SODIUM 40 MG/VIAL IV SCH ×2 (09:50→21:10)
[2023-03-23 12:00] VITALS: BP 117/34
[2023-03-23 16:00] VITALS: BP 102/44
[2023-03-23] MEDS: METHYLPREDNISOLONE SOD SUCC 40 MG/ML VIAL IV SCH (18:00)
[2023-03-23 20:00] VITALS: BP 112/83
[2023-03-24] VITALS: BP 106/25
[2023-03-24 04:00] VITALS: BP 117/26
[2023-03-24] MEDS: METHYLPREDNISOLONE SOD SUCC 40 MG/ML VIAL IV SCH ×2 (06:00→17:38)
[2023-03-24] MEDS: BLOOD SUGAR DIAGNOSTIC STRIP TEST SCH ×4 (07:20→20:38)
[2023-03-24] MEDS: INSULIN LISPRO 100 UNITS/ML SUBCUT SCH ×4 (07:50→20:38)
[2023-03-24 08:00] VITALS: BP 101/33
[2023-03-24 08:49] LABS: FOLIC ACID (FOLATE) SERUM 17.7 ng/mL (>5.38)
[2023-03-24] MEDS: FOLIC ACID 1MG TABLET PO SCH (09:15)
[2023-03-24] MEDS: LACTULOSE 20G/30ML UDC PO SCH (09:15)
[2023-03-24] MEDS: FUROSEMIDE 40MG TABLET PO SCH (09:15)
[2023-03-24] MEDS: DOCUSATE SODIUM 250MG CAPSULE PO SCH ×2 (09:15→17:00)
[2023-03-24] MEDS: PANTOPRAZOLE SODIUM 40 MG/VIAL IV SCH ×2 (09:45→20:39)
[2023-03-24] MEDS: HYDROCODONE/ACETAMINOPHEN 5/325MG TABLET PO PRN ×2 (09:53→20:26)
[2023-03-24 11:25] LABS: BASOPHILS % 0.5 % (0.0-2.0); EOSINOPHILS % 1.6 % (0.0-5.0); HEMATOCRIT. 24.1 % (36.0-48.0); HEMOGLOBIN. 7.8 g/dL (12.0-16.0); MEAN CORPUSCULAR VOLUME 101.6 fL (81.0-99.0); MEAN PLATELET VOLUME 7.8 fl (7.4-10.4); MONOCYTES % 8.3 % (2.0-8.0); NEUTROPHILS % 72.6 % (40.0-76.0); PLATELET 80 x1000/uL (130-400); RED BLOOD CELL COUNT 2.38 mill/uL (4.2-5.4); RED CELL DISTRIBUTION WIDTH 22.9 % (11.6-14.6)
[2023-03-24 12:00] VITALS: BP 117/38
[2023-03-24] MEDS: MIDODRINE HCL 5MG TABLET PO SCH (13:41)
[2023-03-24 16:00] VITALS: BP 120/48
[2023-03-24 20:00] VITALS: BP 112/42
[2023-03-25] VITALS: BP 110/41
[2023-03-25] MEDS: METHYLPREDNISOLONE SOD SUCC 40 MG/ML VIAL IV SCH ×4 (02:45→23:04)
[2023-03-25] MEDS: MIDODRINE HCL 5MG TABLET PO SCH ×4 (02:46→22:00)
[2023-03-25] MEDS: HYDROCODONE/ACETAMINOPHEN 5/325MG TABLET PO PRN ×2 (02:49→09:05)
[2023-03-25 06:03] LABS: BASOPHILS % 0.2 % (0.0-2.0); EOSINOPHILS % 0.1 % (0.0-5.0); HEMATOCRIT. 26.7 % (36.0-48.0); LYMPHOCYTES % 10.2 % (20.0-50.0); MEAN CORPUSCULAR HEMOGLOBIN 33.7 pg (28.0-32.0); MEAN CORPUSCULAR VOLUME 99.8 fL (81.0-99.0); MEAN PLATELET VOLUME 7.7 fl (7.4-10.4); MONOCYTES % 4.8 % (2.0-8.0); NEUTROPHILS % 84.7 % (40.0-76.0); PLATELET 100 x1000/uL (130-400); RED BLOOD CELL COUNT 2.68 mill/uL (4.2-5.4); RED CELL DISTRIBUTION WIDTH 22.5 % (11.6-14.6)
[2023-03-25 06:43] LABS: PLATELET ESTIMATE DECREASED
[2023-03-25] MEDS: BLOOD SUGAR DIAGNOSTIC STRIP TEST SCH ×4 (07:07→21:00)
[2023-03-25] MEDS: INSULIN LISPRO 100 UNITS/ML SUBCUT SCH ×3 (07:07→17:14)
[2023-03-25 08:00] VITALS: BP 111/50
[2023-03-25] MEDS: DOCUSATE SODIUM 250MG CAPSULE PO SCH ×2 (08:59→17:00)
[2023-03-25] MEDS: PANTOPRAZOLE SODIUM 40 MG/VIAL IV SCH ×2 (09:00→23:05)
[2023-03-25] MEDS: FOLIC ACID 1MG TABLET PO SCH (09:00)
[2023-03-25] MEDS: FUROSEMIDE 40MG TABLET PO SCH (09:00)
[2023-03-25] MEDS: LACTULOSE 20G/30ML UDC PO SCH (09:00)
[2023-03-25] MEDS: ACETAMINOPHEN 325MG TABLET PO PRN (09:00)
[2023-03-25 10:10] LABS: ANTI-JO 1 ABS <0.2 AI (0.0-0.9); RNP ANTIBODY 3.3 AI (0.0-0.9)
[2023-03-25 12:00] VITALS: BP 111/40
[2023-03-25] MEDS: ERGOCALCIFEROL 50000UNITS CAPSULE PO SCH (12:30)
[2023-03-25 13:06] LABS: ANTI-DNA DOUBLE STRANDED QUANT 5 IU/mL (0-9)
[2023-03-25 16:00] VITALS: BP 103/40
[2023-03-25] MEDS: FISH OIL/OMEGA-3 FATTY ACIDS 1000MG CAPSULE PO SCH ×2 (17:00→17:16)
[2023-03-25 20:00] VITALS: BP 109/35
[2023-03-25] MEDS: MELATONIN 3MG TABLET PO SCH (21:00)
[2023-03-25] MEDS ORDERED: LORAZEPAM 0.5MG TABLET PO PRN (21:00)
[2023-03-26] VITALS: BP 107/41
[2023-03-26 04:00] VITALS: BP 112/42
[2023-03-26 04:07] LABS: ANTI-CARDIOLIPIN AB IGA < 9 APL U/mL (0-11); ANTI-CARDIOLIPIN AB IGG 10 GPL U/mL (0-14); ANTI-CARDIOLIPIN AB IGM < 9 MPL U/mL (0-12)
[2023-03-26] MEDS: HYDROCODONE/ACETAMINOPHEN 5/325MG TABLET PO PRN ×3 (05:02→23:27)
[2023-03-26] MEDS: INSULIN LISPRO 100 UNITS/ML SUBCUT SCH ×5 (05:10→21:52)
[2023-03-26] MEDS: MIDODRINE HCL 5MG TABLET PO SCH ×3 (05:44→21:07)
[2023-03-26 05:47] LABS: BASOPHILS % 0.2 % (0.0-2.0); HEMATOCRIT. 27.2 % (36.0-48.0); HEMOGLOBIN. 9.3 g/dL (12.0-16.0); LYMPHOCYTES % 10.3 % (20.0-50.0); MEAN CORPUSCULAR HEMOGLOBIN 34.3 pg (28.0-32.0); MEAN CORPUSCULAR VOLUME 100.9 fL (81.0-99.0); MEAN PLATELET VOLUME 7.7 fl (7.4-10.4); MONOCYTES % 4.9 % (2.0-8.0); NEUTROPHILS % 84.6 % (40.0-76.0); PLATELET 103 x1000/uL (130-400)
[2023-03-26] MEDS: BLOOD SUGAR DIAGNOSTIC STRIP TEST SCH ×4 (06:49→21:07)
[2023-03-26] MEDS: METHYLPREDNISOLONE SOD SUCC 40 MG/ML VIAL IV SCH ×3 (06:52→21:06)
[2023-03-26 08:00] VITALS: BP 106/35
[2023-03-26] MEDS: FISH OIL/OMEGA-3 FATTY ACIDS 1000MG CAPSULE PO SCH ×2 (08:41→17:38)
[2023-03-26] MEDS: FUROSEMIDE 40MG TABLET PO SCH (08:42)
[2023-03-26] MEDS: DOCUSATE SODIUM 250MG CAPSULE PO SCH ×2 (08:42→17:38)
[2023-03-26] MEDS: LACTULOSE 20G/30ML UDC PO SCH (08:51)
[2023-03-26] MEDS: FOLIC ACID 1MG TABLET PO SCH (08:58)
[2023-03-26] MEDS: PANTOPRAZOLE SODIUM 40 MG/VIAL IV SCH ×2 (09:55→21:06)
[2023-03-26 10:17] LABS: PHOSPHORUS 3.2 mg/dL (2.5-4.9)
[2023-03-26 12:00] VITALS: BP 115/44
[2023-03-26 16:00] VITALS: BP 109/43
[2023-03-26 20:00] VITALS: BP 122/75
[2023-03-26] MEDS: GABAPENTIN 300MG CAPSULE PO SCH (21:06)
[2023-03-26] MEDS: MELATONIN 3MG TABLET PO SCH (21:07)
[2023-03-27] VITALS: BP 107/40
[2023-03-27 04:00] VITALS: BP 107/34
[2023-03-27] MEDS: MIDODRINE HCL 5MG TABLET PO SCH ×3 (05:40→21:51)
[2023-03-27] MEDS: GABAPENTIN 300MG CAPSULE PO SCH ×3 (05:40→21:50)
[2023-03-27] MEDS: METHYLPREDNISOLONE SOD SUCC 40 MG/ML VIAL IV SCH ×3 (05:41→21:51)
[2023-03-27 06:36] LABS: BASOPHILS % 0.3 % (0.0-2.0); HEMATOCRIT. 29.9 % (36.0-48.0); HEMOGLOBIN. 9.9 g/dL (12.0-16.0); LYMPHOCYTES % 11.9 % (20.0-50.0); MEAN CORPUSCULAR HEMOGLOBIN 33.9 pg (28.0-32.0); MEAN CORPUSCULAR VOLUME 102.6 fL (81.0-99.0); MEAN PLATELET VOLUME 8.1 fl (7.4-10.4); MONOCYTES % 4.8 % (2.0-8.0); PLATELET 86 x1000/uL (130-400); RED BLOOD CELL COUNT 2.91 mill/uL (4.2-5.4)
[2023-03-27] MEDS: BLOOD SUGAR DIAGNOSTIC STRIP TEST SCH ×4 (07:20→21:34)
[2023-03-27 08:00] VITALS: BP 115/40
[2023-03-27] MEDS: DOCUSATE SODIUM 250MG CAPSULE PO SCH ×2 (09:00→17:38)
[2023-03-27] MEDS: LACTULOSE 20G/30ML UDC PO SCH (09:00)
[2023-03-27] MEDS: FOLIC ACID 1MG TABLET PO SCH (09:29)
[2023-03-27] MEDS: FUROSEMIDE 40MG TABLET PO SCH (09:29)
[2023-03-27] MEDS: FISH OIL/OMEGA-3 FATTY ACIDS 1000MG CAPSULE PO SCH ×2 (09:30→17:38)
[2023-03-27] MEDS: PANTOPRAZOLE SODIUM 40 MG/VIAL IV SCH ×2 (10:12→21:51)
[2023-03-27 12:00] VITALS: BP 115/39
[2023-03-27] MEDS: FLUOXETINE HCL 20MG CAPSULE PO SCH (12:30)
[2023-03-27 15:06] LABS: ACTIN (SMOOTH MUSCLE) ANTIBODY 17 Units (0-19); ALDOLASE 4.4 U/L (3.3-10.3)
[2023-03-27 16:00] VITALS: BP 116/44
[2023-03-27 19:06] LABS: ANTI-MYELOPEROXIDASE AB < 0.2 units (0.0-0.9); ANTI-PROTEINASE 3 ABS 0.2 units (0.0-0.9)
[2023-03-27 20:00] VITALS: BP 115/42
[2023-03-27 20:58] LABS: HEMOGLOBIN 10.6 g/dL (12.0-16.0)
[2023-03-27 21:15] LABS: HEMATOCRIT 34.8 % (36.0-48.0)
[2023-03-27] MEDS: MELATONIN 3MG TABLET PO SCH (21:50)
[2023-03-27] MEDS: INSULIN LISPRO 100 UNITS/ML SUBCUT SCH (21:52)
[2023-03-28] VITALS: BP 129/42
[2023-03-28 01:01] LABS: HEMOGLOBIN 10.1 g/dL (12.0-16.0)
[2023-03-28 04:00] VITALS: BP 120/47
[2023-03-28] MEDS: GABAPENTIN 300MG CAPSULE PO SCH ×3 (05:21→21:26)
[2023-03-28] MEDS: MIDODRINE HCL 5MG TABLET PO SCH ×3 (05:21→21:27)
[2023-03-28] MEDS: METHYLPREDNISOLONE SOD SUCC 40 MG/ML VIAL IV SCH ×3 (05:21→21:21)
[2023-03-28 06:16] LABS: BASOPHILS % 0.1 % (0.0-2.0); HEMATOCRIT. 29.7 % (36.0-48.0); MEAN CORPUSCULAR HEMOGLOBIN 34.5 pg (28.0-32.0); MEAN CORPUSCULAR VOLUME 102.7 fL (81.0-99.0); MEAN PLATELET VOLUME 7.9 fl (7.4-10.4); MONOCYTES % 6.6 % (2.0-8.0); NEUTROPHILS % 84.3 % (40.0-76.0); PLATELET 76 x1000/uL (130-400); RED BLOOD CELL COUNT 2.89 mill/uL (4.2-5.4); RED CELL DISTRIBUTION WIDTH 23.2 % (11.6-14.6)
[2023-03-28] MEDS: INSULIN LISPRO 100 UNITS/ML SUBCUT SCH ×4 (07:50→23:47)
[2023-03-28 08:00] VITALS: BP 124/41
[2023-03-28] MEDS: BLOOD SUGAR DIAGNOSTIC STRIP TEST SCH ×4 (08:01→21:20)
[2023-03-28] MEDS: LACTULOSE 20G/30ML UDC PO SCH (09:00)
[2023-03-28] MEDS: FUROSEMIDE 40MG TABLET PO SCH (10:40)
[2023-03-28] MEDS: FLUOXETINE HCL 20MG CAPSULE PO SCH (10:40)
[2023-03-28] MEDS: DOCUSATE SODIUM 250MG CAPSULE PO SCH ×2 (10:40→18:15)
[2023-03-28] MEDS: PANTOPRAZOLE SODIUM 40 MG/VIAL IV SCH ×2 (10:40→21:27)
[2023-03-28] MEDS: FISH OIL/OMEGA-3 FATTY ACIDS 1000MG CAPSULE PO SCH ×2 (10:40→18:15)
[2023-03-28] MEDS: FOLIC ACID 1MG TABLET PO SCH (10:45)
[2023-03-28 12:00] VITALS: BP 118/34
[2023-03-28 12:51] LABS: HEMATOCRIT 32.2 % (36.0-48.0); HEMOGLOBIN 10.5 g/dL (12.0-16.0)
[2023-03-28 13:07] LABS: ATYPICAL P-ANCA <1:20 titer (Neg:<1:20); CYTOPLASMIC C-ANCA <1:20 titer (Neg:<1:20); PERINUCLEAR P-ANCA <1:20 titer (Neg:<1:20)
[2023-03-28 16:00] VITALS: BP 128/53
[2023-03-28 20:00] VITALS: BP 121/47
[2023-03-28] MEDS: HYDROCODONE/ACETAMINOPHEN 5/325MG TABLET PO PRN (21:27)
[2023-03-28] MEDS: MELATONIN 3MG TABLET PO SCH (21:27)
[2023-03-29] VITALS: BP 117/43
[2023-03-29 04:00] VITALS: BP 119/45
[2023-03-29 05:39] LABS: HEMATOCRIT. 34.8 % (36.0-48.0); HEMOGLOBIN. 11.2 g/dL (12.0-16.0); MEAN CORPUSCULAR HEMOGLOBIN 33.8 pg (28.0-32.0); MEAN CORPUSCULAR VOLUME 105.4 fL (81.0-99.0); MEAN PLATELET VOLUME 7.9 fl (7.4-10.4); PLATELET 101 x1000/uL (130-400); RED CELL DISTRIBUTION WIDTH 23.1 % (11.6-14.6)
[2023-03-29] MEDS: METHYLPREDNISOLONE SOD SUCC 40 MG/ML VIAL IV SCH (06:00)
[2023-03-29] MEDS: GABAPENTIN 300MG CAPSULE PO SCH ×3 (06:26→21:43)
[2023-03-29] MEDS: BLOOD SUGAR DIAGNOSTIC STRIP TEST SCH ×4 (06:27→21:28)
[2023-03-29] MEDS: MIDODRINE HCL 5MG TABLET PO SCH ×3 (06:27→21:44)
[2023-03-29 07:28] LABS: PLATELET ESTIMATE NORMAL
[2023-03-29] MEDS: INSULIN LISPRO 100 UNITS/ML SUBCUT SCH ×4 (07:50→21:45)
[2023-03-29 08:00] VITALS: BP 111/39
[2023-03-29] MEDS: FUROSEMIDE 40MG TABLET PO SCH (08:41)
[2023-03-29] MEDS: PANTOPRAZOLE SODIUM 40 MG/VIAL IV SCH ×2 (08:41→21:43)
[2023-03-29] MEDS: FLUOXETINE HCL 20MG CAPSULE PO SCH (08:41)
[2023-03-29] MEDS: DOCUSATE SODIUM 250MG CAPSULE PO SCH ×2 (08:41→17:40)
[2023-03-29] MEDS: LACTULOSE 20G/30ML UDC PO SCH (08:41)
[2023-03-29] MEDS: FISH OIL/OMEGA-3 FATTY ACIDS 1000MG CAPSULE PO SCH ×2 (08:41→17:40)
[2023-03-29] MEDS: FOLIC ACID 1MG TABLET PO SCH (08:41)
[2023-03-29] MEDS: HYDROCODONE/ACETAMINOPHEN 5/325MG TABLET PO PRN (08:52)
[2023-03-29] MEDS ORDERED: FLUO20CA39 PO (11:36)
[2023-03-29] MEDS ORDERED: PANT40TA51 MT (11:36)
[2023-03-29] MEDS ORDERED: MELA3TAB40 PO (11:36)
[2023-03-29] MEDS ORDERED: FOLI-43 PO (11:36)
[2023-03-29] MEDS ORDERED: LACT10SO7 PO (11:36)
[2023-03-29] MEDS ORDERED: MIDO5TAB4 PO (11:36)
[2023-03-29] MEDS ORDERED: GABA-532 PO (11:36)
[2023-03-29 12:00] VITALS: BP 116/42
[2023-03-29] MEDS ORDERED: FOLIC ACID 1MG TABLET PO SCH (13:00)
[2023-03-29] MEDS ORDERED: P20 MT (13:16)
[2023-03-29] MEDS ORDERED: METH2.5T MT (13:16)
[2023-03-29] MEDS ORDERED: HYDR200T80 MT (13:16)
[2023-03-29] MEDS: PREDNISONE 20MG TABLET PO SCH ×3 (14:41→18:54)
[2023-03-29] MEDS: HYDROXYCHLOROQUINE SULFATE 200MG TABLET PO SCH (14:44)
[2023-03-29] MEDS ORDERED: METHOTREXATE SODIUM 2 . 5MG TABLET PO SCH ×2 (15:00→21:00)
[2023-03-29 16:00] VITALS: BP 110/39
[2023-03-29 17:07] LABS: ANA IFA Negative (.); HLA CLASS 1 ANTIBODY Positive (Negative); IIb/IIIa ANTIBODY Negative (Negative); Ia/IIa ANTIBODY Negative (Negative); Ib/IX ANTIBODY Negative (Negative)
[2023-03-29 20:00] VITALS: BP 123/38
[2023-03-29] MEDS: MELATONIN 3MG TABLET PO SCH (21:43)
[2023-03-30] VITALS: BP 128/62
[2023-03-30 04:00] VITALS: BP 141/56
[2023-03-30] MEDS: GABAPENTIN 300MG CAPSULE PO SCH ×3 (05:41→22:00)
[2023-03-30] MEDS: MIDODRINE HCL 5MG TABLET PO SCH ×3 (05:55→22:00)
[2023-03-30 06:25] LABS: HEMATOCRIT. 30.5 % (36.0-48.0); MEAN CORPUSCULAR HEMOGLOBIN 33.5 pg (28.0-32.0); PLATELET 72 x1000/uL (130-400); RED BLOOD CELL COUNT 2.99 mill/uL (4.2-5.4); RED CELL DISTRIBUTION WIDTH 23.1 % (11.6-14.6)
[2023-03-30] MEDS: BLOOD SUGAR DIAGNOSTIC STRIP TEST SCH ×4 (07:53→21:00)
[2023-03-30 08:00] VITALS: BP 140/42
[2023-03-30] MEDS: PANTOPRAZOLE SODIUM 40 MG/VIAL IV SCH ×2 (08:29→23:14)
[2023-03-30] MEDS: FUROSEMIDE 40MG TABLET PO SCH (08:30)
[2023-03-30] MEDS: FOLIC ACID 1MG TABLET PO SCH (08:30)
[2023-03-30] MEDS: FLUOXETINE HCL 20MG CAPSULE PO SCH (08:30)
[2023-03-30] MEDS: FISH OIL/OMEGA-3 FATTY ACIDS 1000MG CAPSULE PO SCH ×2 (08:30→17:57)
[2023-03-30] MEDS: PREDNISONE 20MG TABLET PO SCH ×2 (08:30→17:57)
[2023-03-30] MEDS: DOCUSATE SODIUM 250MG CAPSULE PO SCH ×2 (08:31→17:00)
[2023-03-30] MEDS: HYDROXYCHLOROQUINE SULFATE 200MG TABLET PO SCH (08:31)
[2023-03-30] MEDS: LACTULOSE 20G/30ML UDC PO SCH (08:34)
[2023-03-30] MEDS: SODIUM POLYSTYRENE SULFONATE 15 G/60 ML BOT PO NR ×2 (08:45→09:32)
[2023-03-30] MEDS: INSULIN LISPRO 100 UNITS/ML SUBCUT SCH ×4 (09:00→21:00)
[2023-03-30 11:47] LABS: PLATELET ESTIMATE DECREASED
[2023-03-30 12:00] VITALS: BP 120/44
[2023-03-30 16:00] VITALS: BP 119/35
[2023-03-30 20:00] VITALS: BP 111/25
[2023-03-30] MEDS: MELATONIN 3MG TABLET PO SCH (21:00)
[2023-03-31] VITALS: BP 140/58
[2023-03-31 04:00] VITALS: BP 143/48
[2023-03-31] MEDS: GABAPENTIN 300MG CAPSULE PO SCH ×3 (06:35→21:28)
[2023-03-31] MEDS: BLOOD SUGAR DIAGNOSTIC STRIP TEST SCH ×4 (06:35→21:27)
[2023-03-31] MEDS: MIDODRINE HCL 5MG TABLET PO SCH ×3 (06:35→21:29)
[2023-03-31] MEDS: INSULIN LISPRO 100 UNITS/ML SUBCUT SCH ×4 (06:36→21:41)
[2023-03-31] MEDS: LACTULOSE 20G/30ML UDC PO SCH (09:00)
[2023-03-31] MEDS: PANTOPRAZOLE SODIUM 40 MG/VIAL IV SCH ×2 (09:54→21:28)
[2023-03-31] MEDS: PREDNISONE 20MG TABLET PO SCH ×2 (09:54→17:40)
[2023-03-31] MEDS: FLUOXETINE HCL 20MG CAPSULE PO SCH (09:54)
[2023-03-31] MEDS: FUROSEMIDE 40MG TABLET PO SCH (09:55)
[2023-03-31] MEDS: HYDROXYCHLOROQUINE SULFATE 200MG TABLET PO SCH (09:58)
[2023-03-31] MEDS: DOCUSATE SODIUM 250MG CAPSULE PO SCH ×2 (09:59→15:47)
[2023-03-31] MEDS: FOLIC ACID 1MG TABLET PO SCH (09:59)
[2023-03-31] MEDS: FISH OIL/OMEGA-3 FATTY ACIDS 1000MG CAPSULE PO SCH ×2 (10:00→15:47)
[2023-03-31 12:00] VITALS: BP 126/81
[2023-03-31 14:05] LABS: HEMATOCRIT. 27.3 % (36.0-48.0); HEMOGLOBIN. 8.9 g/dL (12.0-16.0); MEAN CORPUSCULAR HEMOGLOBIN 33.3 pg (28.0-32.0); MEAN CORPUSCULAR VOLUME 102.2 fL (81.0-99.0); MEAN PLATELET VOLUME 8.3 fl (7.4-10.4); PLATELET 94 x1000/uL (130-400); RED BLOOD CELL COUNT 2.67 mill/uL (4.2-5.4); RED CELL DISTRIBUTION WIDTH 22.7 % (11.6-14.6)
[2023-03-31 16:00] VITALS: BP 131/76
[2023-03-31] MEDS: ONDANSETRON HCL 4MG/2ML INJ IV PRN (18:11)
[2023-03-31 20:00] VITALS: BP 128/41
[2023-03-31] MEDS: MIRTAZAPINE 15MG TABLET PO SCH (21:28)
[2023-03-31] MEDS: MELATONIN 3MG TABLET PO SCH (21:28)
[2023-04-01] VITALS (7 sets, daily range): BP systolic 106–141; BP diastolic 36–54
[2023-04-01] MEDS: GABAPENTIN 300MG CAPSULE PO SCH ×3 (05:08→21:50)
[2023-04-01] MEDS: MIDODRINE HCL 5MG TABLET PO SCH ×2 (05:09→21:49)
[2023-04-01] MEDS: INSULIN LISPRO 100 UNITS/ML SUBCUT SCH ×4 (07:50→21:53)
[2023-04-01] MEDS: PREDNISONE 20MG TABLET PO SCH ×2 (08:20→18:21)
[2023-04-01] MEDS: FOLIC ACID 1MG TABLET PO SCH (09:00)
[2023-04-01] MEDS: FUROSEMIDE 40MG TABLET PO SCH (09:00)
[2023-04-01] MEDS: ERGOCALCIFEROL 50000UNITS CAPSULE PO SCH (09:00)
[2023-04-01] MEDS: FISH OIL/OMEGA-3 FATTY ACIDS 1000MG CAPSULE PO SCH ×2 (09:00→17:00)
[2023-04-01] MEDS: DOCUSATE SODIUM 250MG CAPSULE PO SCH ×2 (09:00→17:19)
[2023-04-01] MEDS: LACTULOSE 20G/30ML UDC PO SCH (09:00)
[2023-04-01] MEDS: FLUOXETINE HCL 20MG CAPSULE PO SCH (09:00)
[2023-04-01] MEDS: HYDROXYCHLOROQUINE SULFATE 200MG TABLET PO SCH (09:00)
[2023-04-01] MEDS: PANTOPRAZOLE SODIUM 40 MG/VIAL IV SCH ×2 (09:00→21:50)
[2023-04-01 09:31] LABS: PLATELET ESTIMATE DECREASED
[2023-04-01] MEDS: BLOOD SUGAR DIAGNOSTIC STRIP TEST SCH ×2 (11:38→21:51)
[2023-04-01] MEDS: ONDANSETRON HCL 4MG/2ML INJ IV PRN (11:49)
[2023-04-01] MEDS ORDERED: SODIUM CHLORIDE 0.9% 1000ML BAG (SEPSIS BOLUS) IV NR (15:45)
[2023-04-01] MEDS ORDERED: ALBUMIN HUMAN 25GM/500ML (5%) IV PRN (16:00)
[2023-04-01] MEDS: MELATONIN 3MG TABLET PO SCH (21:49)
[2023-04-01] MEDS: MIRTAZAPINE 15MG TABLET PO SCH (21:50)
[2023-04-02] VITALS: BP 125/45
[2023-04-02 04:00] VITALS: BP 140/46
[2023-04-02] MEDS: BLOOD SUGAR DIAGNOSTIC STRIP TEST SCH ×4 (05:51→21:04)
[2023-04-02] MEDS: GABAPENTIN 300MG CAPSULE PO SCH ×3 (05:51→21:21)
[2023-04-02] MEDS: MIDODRINE HCL 5MG TABLET PO SCH ×3 (05:51→21:24)
[2023-04-02] MEDS: INSULIN LISPRO 100 UNITS/ML SUBCUT SCH ×4 (07:10→21:08)
[2023-04-02] MEDS: FLUOXETINE HCL 20MG CAPSULE PO SCH (08:30)
[2023-04-02] MEDS: FOLIC ACID 1MG TABLET PO SCH (08:30)
[2023-04-02] MEDS: LACTULOSE 20G/30ML UDC PO SCH (08:30)
[2023-04-02] MEDS: FISH OIL/OMEGA-3 FATTY ACIDS 1000MG CAPSULE PO SCH ×2 (08:30→17:35)
[2023-04-02] MEDS: HYDROXYCHLOROQUINE SULFATE 200MG TABLET PO SCH (08:30)
[2023-04-02] MEDS: PREDNISONE 20MG TABLET PO SCH ×2 (08:30→17:35)
[2023-04-02] MEDS: PANTOPRAZOLE SODIUM 40 MG/VIAL IV SCH ×2 (08:31→21:21)
[2023-04-02] MEDS: DOCUSATE SODIUM 250MG CAPSULE PO SCH ×2 (08:31→17:00)
[2023-04-02 10:06] VITALS: BP 124/35
[2023-04-02 12:00] VITALS: BP 126/33
[2023-04-02 12:33] LABS: HEMATOCRIT. 24.8 % (36.0-48.0); HEMOGLOBIN. 8.1 g/dL (12.0-16.0); MEAN CORPUSCULAR HEMOGLOBIN 33.3 pg (28.0-32.0); MEAN CORPUSCULAR VOLUME 101.9 fL (81.0-99.0); MEAN PLATELET VOLUME 8.8 fl (7.4-10.4); PLATELET 81 x1000/uL (130-400); RED BLOOD CELL COUNT 2.43 mill/uL (4.2-5.4); RED CELL DISTRIBUTION WIDTH 21.9 % (11.6-14.6)
[2023-04-02 12:40] LABS: CHLORIDE 112 mEq/L (98-107)
[2023-04-02 14:23] LABS: PLATELET ESTIMATE DECREASED
[2023-04-02 16:00] VITALS: BP 119/30
[2023-04-02 20:00] VITALS: BP 115/46
[2023-04-02] MEDS: MELATONIN 3MG TABLET PO SCH (21:21)
[2023-04-02] MEDS: MIRTAZAPINE 15MG TABLET PO SCH (21:22)
[2023-04-02] MEDS: ACETAMINOPHEN 325MG TABLET PO PRN (23:26)
[2023-04-03] VITALS: BP 136/43
[2023-04-03 04:00] VITALS: BP 127/34
[2023-04-03 06:27] LABS: HEMATOCRIT. 25.7 % (36.0-48.0); HEMOGLOBIN. 8.4 g/dL (12.0-16.0); MEAN CORPUSCULAR VOLUME 103.6 fL (81.0-99.0); MEAN PLATELET VOLUME 8.8 fl (7.4-10.4); PLATELET 57 x1000/uL (130-400); RED BLOOD CELL COUNT 2.48 mill/uL (4.2-5.4); RED CELL DISTRIBUTION WIDTH 21.9 % (11.6-14.6)
[2023-04-03] MEDS: BLOOD SUGAR DIAGNOSTIC STRIP TEST SCH ×4 (06:29→21:00)
[2023-04-03] MEDS: INSULIN LISPRO 100 UNITS/ML SUBCUT SCH ×4 (06:30→21:19)
[2023-04-03] MEDS: GABAPENTIN 300MG CAPSULE PO SCH ×3 (06:30→21:18)
[2023-04-03] MEDS: MIDODRINE HCL 5MG TABLET PO SCH ×3 (06:31→21:15)
[2023-04-03 08:00] VITALS: BP 130/40
[2023-04-03] MEDS: LACTULOSE 20G/30ML UDC PO SCH (09:14)
[2023-04-03] MEDS: HYDROXYCHLOROQUINE SULFATE 200MG TABLET PO SCH (09:14)
[2023-04-03] MEDS: FISH OIL/OMEGA-3 FATTY ACIDS 1000MG CAPSULE PO SCH ×2 (09:15→18:12)
[2023-04-03] MEDS: FOLIC ACID 1MG TABLET PO SCH (09:15)
[2023-04-03] MEDS: PREDNISONE 20MG TABLET PO SCH ×2 (09:16→18:12)
[2023-04-03] MEDS: FLUOXETINE HCL 20MG CAPSULE PO SCH (09:16)
[2023-04-03] MEDS: DOCUSATE SODIUM 250MG CAPSULE PO SCH ×2 (09:16→17:00)
[2023-04-03] MEDS: PANTOPRAZOLE SODIUM 40 MG/VIAL IV SCH ×2 (09:16→21:18)
[2023-04-03 12:00] VITALS: BP 111/36
[2023-04-03 14:11] LABS: PLATELET ESTIMATE MARKEDLY DECREASED
[2023-04-03] MEDS: ONDANSETRON HCL 4MG/2ML INJ IV PRN (15:54)
[2023-04-03 16:00] VITALS: BP 100/37
[2023-04-03 18:25] LABS: HEMATOCRIT 25.9 % (36.0-48.0); HEMOGLOBIN 8.2 g/dL (12.0-16.0)
[2023-04-03 20:00] VITALS: BP 104/32
[2023-04-03] MEDS: MIRTAZAPINE 15MG TABLET PO SCH (21:17)
[2023-04-03] MEDS: MELATONIN 3MG TABLET PO SCH (21:18)
[2023-04-04] VITALS: BP 92/64
[2023-04-04 00:57] LABS: HEMOGLOBIN 7.9 g/dL (12.0-16.0)
[2023-04-04 04:00] VITALS: BP 94/47
[2023-04-04] MEDS: MIDODRINE HCL 5MG TABLET PO SCH ×3 (05:46→21:01)
[2023-04-04] MEDS: GABAPENTIN 300MG CAPSULE PO SCH ×3 (05:46→21:01)
[2023-04-04] MEDS: INSULIN LISPRO 100 UNITS/ML SUBCUT SCH ×4 (05:59→20:35)
[2023-04-04] MEDS: BLOOD SUGAR DIAGNOSTIC STRIP TEST SCH ×5 (05:59→20:30)
[2023-04-04 06:37] LABS: HEMATOCRIT 25.1 % (36.0-48.0); HEMOGLOBIN 8.3 g/dL (12.0-16.0)
[2023-04-04 08:00] VITALS: BP 124/32
[2023-04-04] MEDS: DOCUSATE SODIUM 250MG CAPSULE PO SCH ×3 (09:00→18:11)
[2023-04-04] MEDS: LACTULOSE 20G/30ML UDC PO SCH ×2 (09:00→09:02)
[2023-04-04] MEDS: PREDNISONE 20MG TABLET PO SCH ×2 (09:01→18:11)
[2023-04-04] MEDS: PANTOPRAZOLE SODIUM 40 MG/VIAL IV SCH ×2 (09:01→21:38)
[2023-04-04] MEDS: FOLIC ACID 1MG TABLET PO SCH (09:02)
[2023-04-04] MEDS: FISH OIL/OMEGA-3 FATTY ACIDS 1000MG CAPSULE PO SCH ×2 (09:02→18:11)
[2023-04-04] MEDS: FLUOXETINE HCL 20MG CAPSULE PO SCH (09:02)
[2023-04-04] MEDS: HYDROXYCHLOROQUINE SULFATE 200MG TABLET PO SCH (09:02)
[2023-04-04 12:00] VITALS: BP 115/36
[2023-04-04] MEDS: ONDANSETRON HCL 4MG/2ML INJ IV PRN (14:07)
[2023-04-04 16:00] VITALS: BP 121/47
[2023-04-04 16:19] LABS: HEMATOCRIT 25.9 % (36.0-48.0); HEMOGLOBIN 8.4 g/dL (12.0-16.0)
[2023-04-04 19:47] LABS: HEMATOCRIT 26.8 % (36.0-48.0); HEMOGLOBIN 8.3 g/dL (12.0-16.0)
[2023-04-04 20:00] VITALS: BP 118/48
[2023-04-04] MEDS: MIRTAZAPINE 15MG TABLET PO SCH (20:28)
[2023-04-04] MEDS: MELATONIN 3MG TABLET PO SCH (20:30)
[2023-04-05] VITALS: BP 135/35
[2023-04-05 01:26] LABS: HEMATOCRIT 25.5 % (36.0-48.0); HEMOGLOBIN 8.1 g/dL (12.0-16.0)
[2023-04-05 04:00] VITALS: BP 114/38
[2023-04-05] MEDS: MIDODRINE HCL 5MG TABLET PO SCH ×2 (06:30→14:00)
[2023-04-05] MEDS: GABAPENTIN 300MG CAPSULE PO SCH ×2 (06:30→14:00)
[2023-04-05] MEDS: BLOOD SUGAR DIAGNOSTIC STRIP TEST SCH ×2 (06:33→12:20)
[2023-04-05] MEDS: INSULIN LISPRO 100 UNITS/ML SUBCUT SCH ×2 (07:50→12:50)
[2023-04-05] MEDS: PREDNISONE 20MG TABLET PO SCH (08:45)
[2023-04-05] MEDS: FLUOXETINE HCL 20MG CAPSULE PO SCH (08:50)
[2023-04-05] MEDS: DOCUSATE SODIUM 250MG CAPSULE PO SCH (08:50)
[2023-04-05] MEDS: FOLIC ACID 1MG TABLET PO SCH (08:50)
[2023-04-05] MEDS: HYDROXYCHLOROQUINE SULFATE 200MG TABLET PO SCH (08:50)
[2023-04-05] MEDS: FISH OIL/OMEGA-3 FATTY ACIDS 1000MG CAPSULE PO SCH (08:50)
[2023-04-05] MEDS: PANTOPRAZOLE SODIUM 40 MG/VIAL IV SCH (08:58)
[2023-04-05] MEDS: LACTULOSE 20G/30ML UDC PO SCH (09:00)
[2023-04-05] MEDS ORDERED: METHOTREXATE SODIUM 2 . 5MG TABLET PO SCH ×3 (09:00→21:00)
[2023-04-05 12:00] VITALS: BP 133/43
[2023-04-05 16:00] VITALS: BP 128/34
[2023-04-05 16:36] VITALS: BP 122/52
[2023-04-05 16:40] VITALS: BP 130/63
[2023-04-05 17:06] LABS: ANA IFA Negative (.)
== END 2023-04-05 17:25 | DRG 308 ==
LOC: ER 18:55 → MICUSO 23:41 → EDBEDREQ 03-14 00:14 → 3WST 03-14 04:50 → 6EST 03-22 01:10 → 7EST 04-01 16:55 → 6WST 04-04 17:01
PROVIDERS: ADMIT Family Medicine Adult Medicine; ATTEND Family Medicine Adult Medicine
PROC: 05HP33Z Insertion of Infusion Device into Right External Jugular Vein, Percutaneous Approach (ICD-10-PCS; principal; 2023-03-15)
PROC: B543ZZA Ultrasonography of Right Jugular Veins, Guidance (ICD-10-PCS; 2023-03-15)
PROC: 0QS706Z Reposition Left Upper Femur with Intramedullary Internal Fixation Device, Open Approach (ICD-10-PCS; 2023-03-16)
PROC: 30233N1 Transfusion of Nonautologous Red Blood Cells into Peripheral Vein, Percutaneous Approach (ICD-10-PCS; 2023-03-16)
DX: S72.142A Displaced intertrochanteric fracture of left femur, initial encounter for closed fracture (principal); G93.41 Metabolic encephalopathy; G61.0 Guillain-Barre syndrome; N17.9 Acute kidney failure, unspecified; Z68.43 Body mass index [BMI] 50.0-59.9, adult; E44.1 Mild protein-calorie malnutrition; D68.9 Coagulation defect, unspecified; D69.6 Thrombocytopenia, unspecified; I95.9 Hypotension, unspecified; K57.92 Diverticulitis of intestine, part unspecified, without perforation or abscess without bleeding; E87.20 Acidosis, unspecified; E88.09 Other disorders of plasma-protein metabolism, not elsewhere classified; I13.0 Hypertensive heart and chronic kidney disease with heart failure and stage 1 through stage 4 chronic kidney disease, or unspecified chronic kidney disease; I50.30 Unspecified diastolic (congestive) heart failure; F33.1 Major depressive disorder, recurrent, moderate; E11.22 Type 2 diabetes mellitus with diabetic chronic kidney disease; Z20.822 Contact with and (suspected) exposure to COVID-19; E03.9 Hypothyroidism, unspecified; E86.9 Volume depletion, unspecified; N18.31 Chronic kidney disease, stage 3a; K52.9 Noninfective gastroenteritis and colitis, unspecified; K74.60 Unspecified cirrhosis of liver; G89.29 Other chronic pain; K42.9 Umbilical hernia without obstruction or gangrene; E87.6 Hypokalemia; K76.0 Fatty (change of) liver, not elsewhere classified; N20.0 Calculus of kidney; N39.0 Urinary tract infection, site not specified; J91.8 Pleural effusion in other conditions classified elsewhere; K62.4 Stenosis of anus and rectum; M62.82 Rhabdomyolysis; M47.816 Spondylosis without myelopathy or radiculopathy, lumbar region; I77.6 Arteritis, unspecified; H54.7 Unspecified visual loss; E66.01 Morbid (severe) obesity due to excess calories; Z95.828 Presence of other vascular implants and grafts; E55.9 Vitamin D deficiency, unspecified; E53.8 Deficiency of other specified B group vitamins; K57.90 Diverticulosis of intestine, part unspecified, without perforation or abscess without bleeding; D62 Acute posthemorrhagic anemia; R65.10 Systemic inflammatory response syndrome (SIRS) of non-infectious origin without acute organ dysfunction; B96.20 Unspecified Escherichia coli [E. coli] as the cause of diseases classified elsewhere; Z93.3 Colostomy status; Q61.9 Cystic kidney disease, unspecified; Z90.49 Acquired absence of other specified parts of digestive tract; Z87.81 Personal history of (healed) traumatic fracture; Z87.442 Personal history of urinary calculi; Z82.49 Family history of ischemic heart disease and other diseases of the circulatory system; Z79.899 Other long term (current) drug therapy; Z79.84 Long term (current) use of oral hypoglycemic drugs; W01.0XXA Fall on same level from slipping, tripping and stumbling without subsequent striking against object, initial encounter; Y92.002 Bathroom of unspecified non-institutional (private) residence as the place of occurrence of the external cause; Y99.8 Other external cause status; Y93.89 Activity, other specified
CPT/HCPCS: 36415; 36573; 36600; 70551; 71045; 72170; 73502; 74174; 76700; 76857; 80048; 80053; 80061; 81003; 82085; 82140; 82270; 82306; 82375; 82550; 82607; 82728; 82746; 82805; 82962; 83036; 83516; 83520; 83540; 83550; 83605; 83735; 83880; 84100; 84145; 84443; 84484; 85014; 85018; 85025; 85027; 85044; 85379; 86022; 86038; 86147; 86160; 86225; 86235; 86256; 86431; 86850; 86880; 86900; 86920; 87077; 87186; 87426; 93005; 93306; 97110; 97162; 97166; 97530; 97535; 99285; A6261; C1725; C9113; J0690; J0696; J1815; J2250; J2270; J2405; J2704; J2920; J3010; J3370; J3430; J3480; J3490; J7030; J7040; J7060; J7512; J8610; P9016; P9047; Q9967; A4315; C1713